=== PATIENT | female | born 1975 | race Caucasian/White ===

== ENCOUNTER 2019-03-12 10:49 | Emergency (ER) | payer MEDICAID ==
[2019-03-12 11:14] VITALS: RESP 18; TEMP 98
[2019-03-12] MEDS ORDERED: HEPARIN SODIUM 5000 U/ML SOL ONE ×2 (11:36→13:39)
[2019-03-12 11:43] LABS: BASOPHILS % (AUTO) 1 % (0-3); EOSINOPHILS % (AUTO) 3 % (0-9); HEMATOCRIT 39 % (35-47); HEMOGLOBIN 12.9 gm/dl (12.0-15.5); LYMPHOCYTES % (AUTO) 31.7 % (10-50); MONOCYTES % (AUTO) 6.3 % (0-12); NEUTROPHILS % (AUTO) 58.6 % (37-80)
[2019-03-12 11:52] LABS: CALCIUM 8.1 mg/dl (8.5-10.1); CARBON DIOXIDE 27.8 mEq/L (21-32); CREATININE 0.78 mg/dl (0.60-1.00); POTASSIUM 3.1 mMol/L (3.5-5.1)
[2019-03-12 11:53] LABS: MEAN CORPUSCULAR VOLUME 109 fL (81-99)
[2019-03-12 11:56] LABS: INR 1.07 (0.86-1.12)
[2019-03-12] MEDS ORDERED: HEPARIN SODIUM 5000 U/ML 25,000 U in DEXTROSE 250 ML 250 ML IV PRN (12:03)
[2019-03-12 12:27] LABS: ANISOCYTOSIS SLIGHT
[2019-03-12] MEDS ORDERED: HEPARIN SODIUM 5000 U/ML SOL IV ONE (13:32)
[2019-03-12] MEDS ORDERED: HYDROMORPHONE 1 MG/ML SYRINGE IV PRN (13:33)
[2019-03-12] MEDS ORDERED: HYDROMORPHONE 1 MG/ML SYRINGE ONE (13:39)
[2019-03-12 13:56] VITALS: BP 138/105; PULSE 70; O2SAT 98
== END 2019-03-12 13:55 | disposition short-term general hospital (02) | DRG 300 ==
LOC: ED 10:49
DX: I73.89 Other specified peripheral vascular diseases (principal); I82.401 Acute embolism and thrombosis of unspecified deep veins of right lower extremity; M79.661 Pain in right lower leg
CPT/HCPCS: 36415; 75635; 80048; 82550; 85025; 85610; 85730; 96365; 96374; 96375; 99285; 99291; G0390; J1644; Q9967; J1170